=== PATIENT | female | born 1985 | race Caucasian/White ===

== ENCOUNTER 2017-06-07 21:31 | Emergency (ER) | payer BC ==
--- NOTE | 2017-06-08 00:19 | ER ---
DATE SEEN: 06/07/2017 CHIEF COMPLAINT: Passing out. HISTORY OF PRESENT ILLNESS: This is a 32-year-old female who passed out while at the restaurant. The girl friends report she complained first that she was not feeling good and then became pale. Her lips turned blue. She was twitching of the cheek. She does not remember much of this. She was noted to be very sweaty. This lasted a few seconds. She was brought to the ER by private means. She complains of no chest pain. No headache. PAST MEDICAL HISTORY: She stated that she had a history of the syncope events. She was in the eighth grade. MEDICATIONS: Citalopram 10 mg a day. ALLERGIES: No known allergies. SOCIAL HISTORY: Drinks occasionally. PHYSICAL EXAMINATION: VITAL SIGNS: Blood pressure is normal. She is afebrile. EARS, NOSE AND THROAT: Negative. NECK: Supple. CHEST: Clear. CARDIOVASCULAR: Normal. MENTAL STATUS: Alert. SKIN: No pallor or jaundice. DATA: EKG; mild left atrial enlargement, sinus rhythm. IMPRESSION: Vasovagal syncope. PLAN: Reassurance. I did suggest that I make her referral to electrophysiology for further workup for the vasovagal syncope. She was discharged home in satisfactory condition. TIME SEEN: 2200 hours. /[id number] JOSE JUAN/[place]
== END 2017-06-07 22:42 | disposition home or self-care (01) ==
LOC: FB.ED 21:31
DX: R55 Syncope and collapse (principal)
CPT/HCPCS: 93005; 99284